=== PATIENT | female | born 1970 | race American Indian/Alaskan Native ===

== ENCOUNTER 2019-03-12 16:57 | Emergency (ER) | payer OTHER ==
[2019-03-12] MEDS ORDERED: HYDROcodone/ACETAMINOPHEN 5-325 MG TAB PO ONE (20:46)
[2019-03-12] MEDS ORDERED: IBUPROFEN 800 MG TAB PO ONE (20:46)
[2019-03-12] MEDS ORDERED: dexAMETHasone 20 MG/5 ML VIAL IM ONE (20:46)
--- NOTE | 2019-03-12 20:48 | Emergency Department Report ---
ED Neck Pain/Injury HPI - General Chief Complaint: Neck Pain/Injury Stated Complaint: PAIN ON (L) SIDE NECK TO ARM Time Seen by Provider: 03/12/19 19:51 Mode of arrival: Ambulatory Limitations: No Limitations - History of Present Illness Initial Comments: His rest the 49-year-old -Italian female who presents for chronic left neck pain radiating to left arm, patient completed cardiac workup last week with PCP cardiac status is normal EF is greater than 60%: this neck pain again is chronic for 5+ years, patient has degenerative disc disease Cspine, with radiculopathy. Patient is not currently followed by orthopedics, requesting referral to ortho, currently there is no cp, no diaphoresis ,no shortness of breath, no nausea /vomiting, no back pain. Left neck pain as 5/10 radiating to her left arm ,aching ,tingling. pain is exacerbated by movement, pain is relieved by rest. patient denies fall, injury ,or trauma , range of motion remains intact and unrestricted. MD Complaint: neck pain -: year(s) Place: home Radiation: left lateral Severity: moderate Severity scale (0 -10): 4 Quality: aching Consistency: constant Improves With: none Worsens With: none Context: other (chronic neck pain ) Associated Symptoms: tingling. denies: headache, weakness, vertigo, nausea, vomiting Treatments Prior to Arrival: none - Related Data Previous Rx's Medication Instructions Recorded Last Taken Type Diclofenac Dr (Nf) 50 mg PO TID PRN #30 tab 03/12/19 Unknown Rx Menthol/Camphor [[place] 1 applicatio TP QID PRN #1 tube 03/12/19 Unknown Rx Ointment] methOCARBAMOL [Robaxin TAB] 500 mg PO TID PRN #30 tab 03/12/19 Unknown Rx predniSONE [Deltasone] 40 mg PO QDAY 5 Days #10 tab 03/12/19 Unknown Rx Allergies Allergy/AdvReac Type Severity Reaction Status Date / Time No Known Allergies Allergy Unverified 03/12/19 17:09 ED Review of Systems ROS: Stated complaint: PAIN ON (L) SIDE NECK TO ARM Other details as noted in HPI Constitutional: denies: chills, fever Eyes: denies: eye pain, eye discharge, vision change ENT: denies: ear pain, throat pain Respiratory: denies: cough, shortness of breath, wheezing Cardiovascular: denies: chest pain, palpitations Endocrine: no symptoms reported Gastrointestinal: denies: abdominal pain, nausea, diarrhea Genitourinary: denies: urgency, dysuria, discharge Musculoskeletal: arthralgia, myalgia. denies: back pain, joint swelling Skin: denies: rash, lesions Neurological: denies: headache, weakness, numbness, paresthesias, confusion, vertigo Psychiatric: denies: anxiety, depression Hematological/Lymphatic: denies: easy bleeding, easy bruising ED Past Medical Hx - Past Medical History Previous Medical History?: Yes Hx Diabetes: Yes - Social History Smoking Status: Never Smoker Substance Use Type: None - Medications Home Medications: Home Medications Medication Instructions Recorded Confirmed Last Taken Type Diclofenac Dr (Nf) 50 mg PO TID PRN #30 tab 03/12/19 Unknown Rx Menthol/Camphor [[place] 1 applicatio TP QID PRN #1 tube 03/12/19 Unknown Rx Ointment] methOCARBAMOL [Robaxin TAB] 500 mg PO TID PRN #30 tab 03/12/19 Unknown Rx predniSONE [Deltasone] 40 mg PO QDAY 5 Days #10 tab 03/12/19 Unknown Rx ED Physical Exam - General Limitations: No Limitations General appearance: alert, in no apparent distress - Head Head exam: Present: atraumatic, normocephalic - Eye Eye exam: Present: normal appearance, PERRL, EOMI Pupils: Present: normal accommodation - ENT ENT exam: Present: mucous membranes moist - Neck Neck exam: Present: normal inspection, tenderness (right posterior lateral neck muscle pain ), full ROM. Absent: lymphadenopathy, thyromegaly - Expanded Neck Exam Expanded Neck exam: Present: tenderness (no posterior vertebral point tenderness rom intact to all pierce. without restricted ). Absent: midline deformity, anterior neck swelling, thyroid mass, carotid bruit, tracheal deviation - Respiratory Respiratory exam: Present: normal lung sounds bilaterally. Absent: respiratory distress, wheezes, stridor - Cardiovascular Cardiovascular Exam: Present: regular rate, normal rhythm, normal heart sounds. Absent: systolic murmur, diastolic murmur, rubs, gallop - GI/Abdominal GI/Abdominal exam: Present: soft, normal bowel sounds. Absent: distended, tenderness, bruit, hernia - Rectal Rectal exam: Present: deferred - Extremities Exam Extremities exam: Present: normal inspection, full ROM, normal capillary refill. Absent: tenderness, joint swelling - Expanded Upper Extremity Exam Left Shoulder Exam: Present: normal inspection, full ROM. Absent: tenderness Upper Arm exam: Present: normal inspection, full ROM. Absent: tenderness Elbow exam: Present: normal inspection, full ROM. Absent: tenderness Forearm Wrist exam: Present: normal inspection, full ROM. Absent: tenderness Hand Wrist exam: Present: normal inspection, full ROM. Absent: tenderness Neuro motor exam: Present: wrist extension intact, thumb opposition intact, thumb IP flexion intact, thumb adduction intact, fingers 2-5 abduction intact Neurosensory exam: Present: 2-point discrimination, radial nerve intact Vascular: Present: normal capillary refill - Back Exam Back exam: Present: normal inspection, full ROM. Absent: tenderness, CVA tenderness (R), CVA tenderness (L), muscle spasm, paraspinal tenderness, vertebral tenderness, rash noted - Neurological Exam Neurological exam: Present: alert, oriented X3, CN II-XII intact, normal gait, reflexes normal. Absent: motor sensory deficit - Expanded Neurological Exam Expanded Patient oriented to: Present: person, place, time Speech: Present: fluid speech Cranial nerves: EOM's Intact: Normal, Gag Reflex: Normal, Tongue Deviation: Normal, Nystagmus: Normal, Facial Sensation: Normal Motor strength exam: RUE: 5, LUE: 5 Best Eye Response ([place]): (4) open spontaneously Best Motor Response ([place]): (6) obeys commands Best Verbal Response ([place]): (5) oriented [place] Total: 15 - Psychiatric Psychiatric exam: Present: normal affect, normal mood - Skin Skin exam: Present: warm, dry, intact, normal color. Absent: rash ED Course Vital Signs 03/12/19 17:36 Temperature 98.2 F Pulse Rate 79 Respiratory 18 Rate Blood Pressure 120/88 O2 Sat by Pulse 98 Oximetry ED Medical Decision Making - Radiology Data Radiology results: report reviewed, image reviewed Ordering Physician: JOY ESCAMILLA NP Date of Service: 03/12/19 Procedure(s): XR spine cervical 2-3V Accession Number(s): [id number] cc: JOY ESCAMILLA NP Fluoro Time In Minutes: CERVICAL SPINE 3 VIEWS 2105 INDICATION: MAIN: neck pain X 3 DAYS; NO RECENT OR PREVIOUS INJURY; PAIN RADIATING DOWN RIGHT ARM COMPARISON: None available. FINDINGS: Lateral views mildly underpenetrated. No soft tissue swelling is seen. Moderate diffuse degenerative changes are seen. Disc space narrowing is noted at multiple levels below C3 but particularly C6-7. Anterior osteophytes are moderately prominent at the lower 2 levels with small osteophyte heights posteriorly at the lower 3 levels. No fractures or subluxations are seen. Slight scoliosis is noted. Signer Name: Aayush Blunt MD Signed: 03/12/2019 9:19 PM Workstation Name: [id number] Transcribed By: Dictated By: Aayush Blunt MD Electronically Authenticated By: Aayush Blunt MD Signed Date/Time: 03/12/192118 DD/ 17 TD/TT: - Medical Decision Making this is chronic radicular pain , plan: diclofenac ,methorcarbamol, prednisone, follow up with orthopedics in 2-3 days, pt verbalized agreement and understandong of discharge plan. Critical care attestation.: If time is entered above; I have spent that time in minutes in the direct care of this critically ill patient, excluding procedure time. ED Disposition Clinical Impression: Cervical radicular pain, Chronic neck pain Disposition: - TO HOME OR SELFCARE Is pt being admited?: No Does the pt Need Aspirin: No Condition: Stable Instructions: Cervical Spine Strain (ED), Cervical Radiculopathy (ED) Prescriptions: predniSONE [Deltasone] 40 mg PO QDAY 5 Days #[address] (Nf) 50 mg PO TID PRN #30 tab PRN Reason: pain methOCARBAMOL [Robaxin TAB] 500 mg PO TID PRN #30 tab PRN Reason: muscle spasm Menthol/Camphor [[place] Ointment] 1 applicatio TP QID PRN #1 tube PRN Reason: Pain , Severe (7-10) Referrals: AMOS HARRIS MD [Staff Physician] - 3-5 Days Forms: Work/School Release Form(ED) Time of Disposition: 21:59
--- NOTE | 2019-03-12 21:24 | XRay Report ---
CERVICAL SPINE 3 VIEWS 2105 INDICATION: MAIN: neck pain X 3 DAYS; NO RECENT OR PREVIOUS INJURY; PAIN RADIATING DOWN RIGHT ARM COMPARISON: None available. FINDINGS: Lateral views mildly underpenetrated. No soft tissue swelling is seen. Moderate diffuse deg enerative changes are seen. Disc space narrowing is noted at multiple levels below C3 but particularl y C6-7. Anterior osteophytes are moderately prominent at the lower 2 levels with small osteophyte hei ghts posteriorly at the lower 3 levels. No fractures or subluxations are seen. Slight scoliosis is no nataly. Signer Name: Aayush Blunt MD Signed: 03/12/2019 9:19 PM Workstation Name: [id number]
[2019-03-12 21:56] VITALS: BP 119/78
== END 2019-03-12 22:10 | disposition home or self-care (01) ==
LOC: ED 16:57
DX: M54.12 Radiculopathy, cervical region (principal); E11.9 Type 2 diabetes mellitus without complications; Z79.899 Other long term (current) drug therapy
CPT/HCPCS: 72040; 96372; 99283; J1100

== ENCOUNTER 2020-03-10 14:39 | Emergency (ER) | payer OTHER ==
[2020-03-10] MEDS ORDERED: dexAMETHasone 20 MG/5 ML VIAL IM ONE (16:43)
[2020-03-10] MEDS ORDERED: FAMOTIDINE 20 MG TAB PO ONE (16:43)
[2020-03-10 16:55] VITALS: BP 117/70
--- NOTE | 2020-03-10 16:56 | Emergency Department Report ---
ED Allergic Reaction HPI - General Chief complaint: Allergic Reaction Stated complaint: ALLERGIC REACTION Source: patient Mode of arrival: Ambulatory Limitations: No Limitations - History of Present Illness Initial Comments: Patient is a 50-year-old female presents emergency room with complaints of a possible allergic reaction that began yesterday. She states that she has a di ffuse rash which is very pruritic. She states that she has been taking Benadryl since yesterday but is continues to have itching. She states that she last took it around 9 AM this morning. She denies any new soaps, lotions, detergents, medications, foods, anything new she can think of. She denies any facial swelling, difficulty swallowing, tongue swelling, sensation of throat closing, shortness of breath. She states that this has happened in the past and states that it last occurred a year ago. She states that she had allergy test 2 years ago and reports it was normal. No past medical history. No allergies medications. - Related Data Previous Rx's Medication Instructions Recorded Last Taken Type Diclofenac Dr (Nf) 50 mg PO TID PRN #30 tab 03/12/19 Unknown Rx Menthol/Camphor [[place] 1 applicatio TP QID PRN #1 tube 03/12/19 Unknown Rx Ointment] methOCARBAMOL [Robaxin TAB] 500 mg PO TID PRN #30 tab 03/12/19 Unknown Rx predniSONE [Deltasone] 40 mg PO QDAY 5 Days #10 tab 03/12/19 Unknown Rx Famotidine [Pepcid] 40 mg PO QHS #10 tablet 03/10/20 Unknown Rx Prednisone [predniSONE 10 mg 10 mg PO .TAPER #1 tab.ds.pk 03/10/20 Unknown Rx (6-Day Pack, 21 Tabs)] hydrOXYzine HCL [Atarax] 25 mg PO Q6HR PRN #12 tablet 03/10/20 Unknown Rx Allergies Allergy/AdvReac Type Severity Reaction Status Date / Time No Known Allergies Allergy Unverified 03/12/19 17:09 ED Review of Systems ROS: Stated complaint: ALLERGIC REACTION Other details as noted in HPI Comment: All other systems reviewed and negative ED Past Medical Hx - Past Medical History Previous Medical History?: Yes Hx Hypertension: Yes Hx Diabetes: Yes Hx Arthritis: Yes - Surgical History Past Surgical History?: No - Social History Smoking Status: Never Smoker Substance Use Type: None - Medications Home Medications: Home Medications Medication Instructions Recorded Confirmed Last Taken Type Diclofenac Dr (Nf) 50 mg PO TID PRN #30 tab 03/12/19 Unknown Rx Menthol/Camphor [[place] 1 applicatio TP QID PRN #1 tube 03/12/19 Unknown Rx Ointment] methOCARBAMOL [Robaxin TAB] 500 mg PO TID PRN #30 tab 03/12/19 Unknown Rx predniSONE [Deltasone] 40 mg PO QDAY 5 Days #10 tab 03/12/19 Unknown Rx Famotidine [Pepcid] 40 mg PO QHS #10 tablet 03/10/20 Unknown Rx Prednisone [predniSONE 10 mg 10 mg PO .TAPER #1 tab.ds.pk 03/10/20 Unknown Rx (6-Day Pack, 21 Tabs)] hydrOXYzine HCL [Atarax] 25 mg PO Q6HR PRN #12 tablet 03/10/20 Unknown Rx ED Physical Exam - General Limitations: No Limitations General appearance: alert, in no apparent distress - Head Head exam: Present: atraumatic, normocephalic - Eye Eye exam: Present: normal appearance - ENT ENT exam: Present: mucous membranes moist, other (no angioedema) - Respiratory Respiratory exam: Present: normal lung sounds bilaterally. Absent: respiratory distress, wheezes, rales, rhonchi, stridor, chest wall tenderness, accessory muscle use, decreased breath sounds, prolonged expiratory - Cardiovascular Cardiovascular Exam: Present: regular rate, normal rhythm, normal heart sounds. Absent: systolic murmur, diastolic murmur, rubs, gallop - Neurological Exam Neurological exam: Present: alert, oriented X3 - Psychiatric Psychiatric exam: Present: normal affect, normal mood - Skin Skin exam: Present: warm, dry, urticaria (diffuse urticaria) ED Course Vital Signs 03/10/20 03/10/20 15:05 20:00 Temperature 99.4 F Pulse Rate 105 H 84 Respiratory 18 17 Rate Blood Pressure 117/70 O2 Sat by Pulse 95 97 Oximetry ED Medical Decision Making - Lab Data Vital Signs 03/10/20 03/10/20 15:05 20:00 Temperature 99.4 F Pulse Rate 105 H 84 Respiratory 18 17 Rate Blood Pressure 117/70 O2 Sat by Pulse 95 97 Oximetry - Medical Decision Making Patient is a 50-year-old female presents emergency room with complaints of a possible allergic reaction that began yesterday. She states that she has a diffuse rash which is very pruritic. She states that she has been taking Amauri adryl since yesterday but is continues to have itching. She states that she last took it around 9 AM this morning. She denies any new soaps, lotions, detergents, medications, foods, anything new she can think of. She denies any facial swelling, difficulty swallowing, tongue swelling, sensation of throat closing, shortness of breath. She states that this has happened in the past and states that it last occurred a year ago. She states that she had allergy test 2 years ago and reports it was normal. No past medical history. No allergies medications. vss. on exam: diffuse urticaria, no signs of angioedema or anaphylaxis. Patient given hydroxyzine, dexamethasone IM, Pepcid while in the emergency department and she was feeling much better and ready to go home and urticaria was improving. She had no further complications and was observed in the emergency department. Patient given prescription for prednisone, hydroxyzine, Pepcid. Advised patient Please take medication as prescribed. Please avoid scratching. Follow-up with your primary care doctor for reexamination. Return to emergency room immediately for any new or worsening symptoms. Critical care attestation.: If time is entered above; I have spent that time in minutes in the direct care of this critically ill patient, excluding procedure time. ED Disposition Clinical Impression: Urticaria Disposition: DC-01 TO HOME OR SELFCARE Is pt being admited?: No Does the pt Need Aspirin: No Condition: Stable Instructions: Hives Additional Instructions: Please take medication as prescribed. Please avoid scratching. Follow-up with your primary care doctor for reexamination. Return to emergency room immediately for any new or worsening symptoms. Prescriptions: Famotidine [Pepcid] 40 mg PO QHS #10 tablet hydrOXYzine HCL [Atarax] 25 mg PO Q6HR PRN #12 tablet PRN Reason: Itching Prednisone [predniSONE 10 mg (6-Day Pack, 21 Tabs)] 10 mg PO .TAPER #1 tab.ds.pk Referrals: PRIMARY CARE, [Primary Care Provider] - 2-3 Days Time of Disposition: 18:33 Print Language: [place]ESE
[2020-03-10] MEDS ORDERED: hydrOXYzine HCL 25 MG TAB PO SCH (17:00)
--- NOTE | 2020-03-10 17:02 | Emergency Department Report ---
HPI - General Chief Complaint: Allergic Reaction ED Past Medical Hx - Past Medical History Previous Medical History?: Yes Hx Hypertension: Yes Hx Diabetes: Yes Hx Arthritis: Yes - Surgical History Past Surgical History?: No - Social History Smoking Status: Never Smoker Substance Use Type: None - Medications Home Medications: Home Medications Medication Instructions Recorded Confirmed Last Taken Type Diclofenac Dr (Nf) 50 mg PO TID PRN #30 tab 03/12/19 Unknown Rx Menthol/Camphor [[place] 1 applicatio TP QID PRN #1 tube 03/12/19 Unknown Rx Ointment] methOCARBAMOL [Robaxin TAB] 500 mg PO TID PRN #30 tab 03/12/19 Unknown Rx predniSONE [Deltasone] 40 mg PO QDAY 5 Days #10 tab 03/12/19 Unknown Rx ED Review of Systems ROS: Stated complaint: ALLERGIC REACTION Other details as noted in HPI Critical care attestation.: If time is entered above; I have spent that time in minutes in the direct care of this critically ill patient, excluding procedure time. ED Disposition Condition: Stable
== END 2020-03-10 20:00 | disposition home or self-care (01) ==
LOC: ED 14:39
DX: L50.9 Urticaria, unspecified (principal); I10 Essential (primary) hypertension; E11.9 Type 2 diabetes mellitus without complications; M19.90 Unspecified osteoarthritis, unspecified site; Z79.899 Other long term (current) drug therapy
CPT/HCPCS: 96372; 99282; J1100

== ENCOUNTER 2020-04-01 00:48 | Emergency (ER) | payer OTHER ==
[2020-04-01 01:13] VITALS: BP 134/72
[2020-04-01] MEDS ORDERED: FAMOTIDINE 20 MG TAB PO ONE (03:53)
[2020-04-01] MEDS ORDERED: hydrOXYzine HCL 25 MG TAB PO ONE (03:53)
--- NOTE | 2020-04-01 03:53 | Emergency Department Report ---
ED General Adult HPI - General Chief complaint: Allergic Reaction Stated complaint: ALLERGIC REACTION PUI?: No Time Seen by Provider: 04/01/20 03:23 Source: patient, family Mode of arrival: Ambulatory Limitations: No Limitations - History of Present Illness Initial comments: The patient was evaluated in the emergency department for symptoms described in the history of present illness. He/she was evaluated in the context of the global COVID-19 pandemic, which necessitated consideration that the patient might be at risk for infection with the virus that causes COVID-19. Institutional protocols and algorithms that pertain to the evaluation of patients at risk for COVID-19 are in a state of rapid change based on informatio n released by regulatory bodies including the CDC and federal and state organizations. These policies and algorithms were followed during the patient's care in the emergency department. Please note that these policies, procedures and recommendations changed on a rapid basis. This is a 50-year-old female. She is not known to myself previously. She is going to see a conservation biology professor next week. She has a history of hypertension, diabetes, arthritis and obesity. The patient presents to the ER today with complaint of diffuse body itching, which has been present for about a month, she was seen in this department last month for similar symptoms, medicated with Atarax, prednisone, and famotidine, reports partial improvement in symptoms, however, over the past 2 to 3 days, reports that diffuse body pruritus has worsened. Denies fever, loss of taste, loss of smell, vaginal foreign body, indwelling tampon/feminine napkin, abdominal pain, chest pain, and shortness of breath. This is similar to her prior episode. She does not have any relieving factors that she is aware of. Patient does endorse nonspecific raised skin lesions underneath her bilateral breasts, arms, legs, and axilla. -: Gradual, week(s) Location: back, abdomen, left, right, upper extremity, lower extremity Quality: burning (Burning and itching), constant Consistency: constant Improves with: none Worsens with: none Associated Symptoms: denies other symptoms - Related Data Previous Rx's Medication Instructions Recorded Last Taken Type Diclofenac Dr (Nf) 50 mg PO TID PRN #30 tab 03/12/19 Unknown Rx Menthol/Camphor [Nathalie Margaret 1 applicatio TP QID PRN #1 tube 03/12/19 Unknown Rx Ointment] methOCARBAMOL [Robaxin TAB] 500 mg PO TID PRN #30 tab 03/12/19 Unknown Rx predniSONE [Deltasone] 40 mg PO QDAY 5 Days #10 tab 03/12/19 Unknown Rx Famotidine [Pepcid] 40 mg PO QHS #10 tablet 04/01/20 Unknown Rx Prednisone [predniSONE 10 mg 10 mg PO .TAPER #1 tab.ds.pk 04/01/20 Unknown Rx (6-Day Pack, 21 Tabs)] hydrOXYzine HCL [Atarax] 25 mg PO Q6HR PRN #12 tablet 04/01/20 Unknown Rx Allergies Allergy/AdvReac Type Severity Reaction Status Date / Time No Known Allergies Allergy Unverified 03/12/19 17:09 ED Review of Systems ROS: Stated complaint: ALLERGIC REACTION Other details as noted in HPI Constitutional: denies: fever Eyes: denies: eye discharge, vision change ENT: denies: ear pain, throat pain, epistaxis, congestion Respiratory: denies: cough Cardiovascular: denies: chest pain Gastrointestinal: denies: abdominal pain, nausea, vomiting, hematemesis, melena, hematochezia Genitourinary: denies: dysuria Musculoskeletal: denies: myalgia Skin: pruritus ED Past Medical Hx - Past Medical History Previous Medical History?: Yes Hx Hypertension: Yes Hx Diabetes: Yes Hx Arthritis: Yes - Surgical History Past Surgical History?: No - Social History Smoking Status: Never Smoker - Medications Home Medications: Home Medications Medication Instructions Recorded Confirmed Last Taken Type Diclofenac Dr (Nf) 50 mg PO TID PRN #30 tab 03/12/19 Unknown Rx Menthol/Camphor [Nathalie Margaret 1 applicatio TP QID PRN #1 tube 03/12/19 Unknown Rx Ointment] methOCARBAMOL [Robaxin TAB] 500 mg PO TID PRN #30 tab 03/12/19 Unknown Rx predniSONE [Deltasone] 40 mg PO QDAY 5 Days #10 tab 03/12/19 Unknown Rx Famotidine [Pepcid] 40 mg PO QHS #10 tablet 04/01/20 Unknown Rx Prednisone [predniSONE 10 mg 10 mg PO .TAPER #1 tab.ds.pk 04/01/20 Unknown Rx (6-Day Pack, 21 Tabs)] hydrOXYzine HCL [Atarax] 25 mg PO Q6HR PRN #12 tablet 04/01/20 Unknown Rx ED Physical Exam - General Limitations: No Limitations General appearance: alert, anxious, obese - Head Head exam: Present: atraumatic, normocephalic - Eye Eye exam: Present: normal appearance, EOMI. Absent: nystagmus - ENT ENT exam: Present: normal exam, normal orophraynx, mucous membranes moist, normal external ear exam - Neck Neck exam: Present: normal inspection, full ROM. Absent: tenderness, meningismus - Respiratory Respiratory exam: Present: normal lung sounds bilaterally. Absent: respiratory distress, wheezes, rales, rhonchi, stridor, chest wall tenderness - Cardiovascular Cardiovascular Exam: Present: regular rate, normal rhythm, normal heart sounds. Absent: bradycardia, tachycardia, irregular rhythm, systolic murmur, diastolic murmur, rubs, gallop - GI/Abdominal GI/Abdominal exam: Present: soft, normal bowel sounds. Absent: distended, tenderness, guarding, rebound, rigid, pulsatile mass - Extremities Exam Extremities exam: Present: normal inspection, full ROM, other (2+ pulses noted in the bilateral upper and lower extremities. There is no palpable cord. negative Homans sign. Muscular compartments are soft. The pelvis is stable.). Absent: calf tenderness - Back Exam Back exam: Present: normal inspection, full ROM. Absent: tenderness, CVA tenderness (R), CVA tenderness (L), paraspinal tenderness, vertebral tenderness - Neurological Exam Neurological exam: Present: alert, oriented X3, normal gait, other (No facial droop. Tongue midline. Extraocular movements intact bilaterally. Facial sensation intact to light touch in V1, V2, V3 distribution bilaterally. 5 and a 5 strength in 4 extremities. Sensation intact to light touch in 4 extremities.). Absent: motor sensory deficit - Psychiatric Psychiatric exam: Present: anxious - Skin Skin exam: Present: warm (Nontender tiny papules noted underneath the bilateral breast creases and arms.), dry, intact, normal color, other (There is no redness, pus, streaking. There is no blanching.). Absent: cyanosis, diaphoretic, urticaria, vesicles, petechiae, abrasion ED Course Vital Signs 04/01/20 01:10 Temperature 98.1 F Pulse Rate 103 H Respiratory 18 Rate Blood Pressure 134/72 O2 Sat by Pulse 97 Oximetry ED Medical Decision Making - Lab Data Result diagrams: 04/01/20 04:06 04/01/20 04:06 Vital Signs 04/01/20 01:10 Temperature 98.1 F Pulse Rate 103 H Respiratory 18 Rate Blood Pressure 134/72 O2 Sat by Pulse 97 Oximetry Lab Results 04/01/20 04/01/20 Range/Units 04:06 04:06 WBC 7.0 (4.5-11.0) K/mm3 RBC 4.55 (3.65-5.03) M/mm3 Hgb 12.0 (10.1-14.3) gm/dl Hct 36.8 (30.3-42.9) % MCV 81 (79-97) fl MCH 27 L (28-32) pg MCHC 33 (30-34) % RDW 17.1 H (13.2-15.2) % Plt Count 239 (140-440) K/mm3 Lymph % (Auto) 28.8 (13.4-35.0) % Rusk % (Auto) 4.7 (0.0-7.3) % Eos % (Auto) 1.3 (0.0-4.3) % Baso % (Auto) 0.4 (0.0-1.8) % Lymph # (Auto) 2.0 (1.2-5.4) K/mm3 Rusk # (Auto) 0.3 (0.0-0.8) K/mm3 Eos # (Auto) 0.1 (0.0-0.4) K/mm3 Baso # (Auto) 0.0 (0.0-0.1) K/mm3 Seg Neutrophils % 64.8 (40.0-70.0) % Seg Neutrophils # 4.5 (1.8-7.7) K/mm3 Sodium 135 L (137-145) mmol/L Potassium 3.9 (3.6-5.0) mmol/L Chloride 98.7 (98-107) mmol/L Carbon Dioxide 29 (22-30) mmol/L Anion Gap 11 mmol/L BUN 8 (7-17) mg/dL Creatinine 0.9 (0.6-1.2) mg/dL Estimated GFR > 60 ml/min BUN/Creatinine Ratio 9 % Glucose 138 H (65-100) mg/dL Calcium 8.9 (8.4-10.2) mg/dL Total Bilirubin 0.40 (0.1-1.2) mg/dL AST 11 (5-40) units/L ALT 15 (7-56) units/L Alkaline Phosphatase 56 (35-129) units/L Total Creatine Kinase 72 (30-135) units/L Total Protein 6.8 (6.3-8.2) g/dL Albumin 3.5 L (3.9-5) g/dL Albumin/Globulin Ratio 1.1 % - Medical Decision Making Differential diagnosis, including but not limited to: Primary pruritus, renal dysfunction, hepatic dysfunction, myelodysplastic disease Assessment and plan: 50-year-old female with diffuse presumably primary pruritus. Her tachycardia has resolved on my exam. She is afebrile with reassuring vital signs. Denies oral pain, vaginal pain and rectal pain, and vaginal/rectal foreign body. In addition, she is afebrile with reassuring vital signs. Laboratory studies not indicative of any emergent medical condition at this time. We treated her symptoms supportively and symptomatically. She has follow-up with a conservation biology professor in a few days. We will discharge with Atarax, famotidine, Medrol Dosepak, instructions to follow-up with outpatient dermatology. Patient has verbalized understanding. Return precautions are reviewed. Patient also denies new cream, cologne, shampoo, clothing etc. Critical care attestation.: If time is entered above; I have spent that time in minutes in the direct care of this critically ill patient, excluding procedure time. ED Disposition Clinical Impression: Generalized pruritus Disposition: DC-01 TO HOME OR SELFCARE Is pt being admited?: No Does the pt Need Aspirin: No Condition: Stable Instructions: Pruritus Additional Instructions: Please take the medications as prescribed and directed. Patient may also use calamine lotion [id number], and or oatmeal baths. Recommend follow-up with your conservation biology professor within the next week. Please return to the emergency room right away with new pain, worsening pain, migration of pain, projectile vomiting, change in mental status, confusion, inability to tolerate liquid feeds, new, worsening or different symptoms not present on the initial emergency room evaluation.
[2020-04-01 04:33] LABS: Basophils % (Auto) 0.4 % (0.0-1.8); Eosinophils # (Auto) 0.1 K/mm3 (0.0-0.4); Eosinophils % (Auto) 1.3 % (0.0-4.3); Hematocrit 36.8 % (30.3-42.9); Lymphocytes % (Auto) 28.8 % (13.4-35.0); Mean Corpuscular HGB Conc 33 % (30-34); Mean Corpuscular Volume 81 fl (79-97); Monocytes # (Auto) 0.3 K/mm3 (0.0-0.8); Monocytes % (Auto) 4.7 % (0.0-7.3); Platelet Count 239 K/mm3 (140-440); Red Blood Count 4.55 M/mm3 (3.65-5.03); Red Cell Distribution Width 17.1 % (13.2-15.2)
[2020-04-01 04:46] LABS: Alanine Aminotransferase 15 units/L (7-56); Albumin 3.5 g/dL (3.9-5); BUN/Creatinine Ratio 9; Blood Urea Nitrogen 8 mg/dL (7-17); Calcium 8.9 mg/dL (8.4-10.2); Hemolysis Index 3
[2020-04-01] MEDS ORDERED: predniSONE 20 MG TAB PO ONE (04:46)
== END 2020-04-01 05:20 | disposition home or self-care (01) ==
LOC: ED 00:48
DX: L29.8 Other pruritus (principal); I10 Essential (primary) hypertension; E11.9 Type 2 diabetes mellitus without complications; M19.90 Unspecified osteoarthritis, unspecified site; Z79.899 Other long term (current) drug therapy
CPT/HCPCS: 36415; 80053; 82550; 84443; 85025; 99283; J7512

== ENCOUNTER 2021-04-20 13:13 | Emergency (ER) | payer OTHER ==
--- NOTE | 2021-04-20 15:48 | Emergency Department Report ---
ED General Adult HPI - General Chief complaint: Allergic Reaction Stated complaint: ALLERGIC REACTION,FACE Time Seen by Provider: 04/20/21 15:40 Source: patient Mode of arrival: Ambulatory Limitations: No Limitations - History of Present Illness Initial comments: Patient presents with allergic reaction. She has had a history of allergies. She has an local government legislator that she sees. She has not had an outbreak in several months. She is not sure what triggered this episode. She woke up in her face was swollen. She had hives. Her lips were swollen. She is not having any trouble breathing or swallowing. She did state that she had some swelling in the left mandibular area and dental pain prior to this. The dental pain was in the left lower mandibular area. She states that she is is concerned that she may have developed an dental abscess. Regardless, she has had hives on the neck and shoulders and the swelling in the face. She came here for evaluation. - Related Data Previous Rx's Medication Instructions Recorded Last Taken Type Diclofenac Dr (Nf) 50 mg PO TID PRN #30 tab 03/12/19 Unknown Rx Menthol/Camphor [Bedford Pearson 1 applicatio TP QID PRN #1 tube 03/12/19 Unknown Rx Ointment] methOCARBAMOL [Robaxin TAB] 500 mg PO TID PRN #30 tab 03/12/19 Unknown Rx Famotidine [Pepcid] 40 mg PO QHS #10 tablet 04/01/20 Unknown Rx Prednisone [predniSONE 10 mg 10 mg PO .TAPER #1 tab.ds.pk 04/01/20 Unknown Rx (6-Day Pack, 21 Tabs)] hydrOXYzine HCL [Atarax] 25 mg PO Q6HR PRN #12 tablet 04/01/20 Unknown Rx Penicillin V Potassium 500 mg PO TID #30 04/20/21 Unknown Rx predniSONE [Deltasone] 40 mg PO QDAY 5 Days #10 tab 04/20/21 Unknown Rx Allergies Allergy/AdvReac Type Severity Reaction Status Date / Time ibuprofen [From Motrin] AdvReac Swelling Verified 04/20/21 13:45 ED Review of Systems ROS: Stated complaint: ALLERGIC REACTION,FACE Other details as noted in HPI Comment: All other systems reviewed and negative Constitutional: denies: fever Eyes: denies: eye pain ENT: denies: throat pain Respiratory: denies: cough Cardiovascular: denies: chest pain Endocrine: denies: unexplained weight loss Gastrointestinal: denies: abdominal pain Genitourinary: denies: dysuria Musculoskeletal: denies: back pain Skin: as per HPI Neurological: denies: headache Hematological/Lymphatic: denies: easy bruising ED Past Medical Hx - Past Medical History Hx Hypertension: Yes Hx Diabetes: Yes Hx Arthritis: Yes - Family History Family history: hypertension - Social History Smoking Status: Never Smoker - Medications Home Medications: Home Medications Medication Instructions Recorded Confirmed Last Taken Type Diclofenac Dr (Nf) 50 mg PO TID PRN #30 tab 03/12/19 Unknown Rx Menthol/Camphor [Bedford Pearson 1 applicatio TP QID PRN #1 tube 03/12/19 Unknown Rx Ointment] methOCARBAMOL [Robaxin TAB] 500 mg PO TID PRN #30 tab 03/12/19 Unknown Rx Famotidine [Pepcid] 40 mg PO QHS #10 tablet 04/01/20 Unknown Rx Prednisone [predniSONE 10 mg 10 mg PO .TAPER #1 tab.ds.pk 04/01/20 Unknown Rx (6-Day Pack, 21 Tabs)] hydrOXYzine HCL [Atarax] 25 mg PO Q6HR PRN #12 tablet 04/01/20 Unknown Rx Penicillin V Potassium 500 mg PO TID #30 04/20/21 Unknown Rx predniSONE [Deltasone] 40 mg PO QDAY 5 Days #10 tab 04/20/21 Unknown Rx ED Physical Exam - General Limitations: No Limitations, Other (Pulse ox noted and normal) General appearance: alert, in no apparent distress - Head Head exam: Present: atraumatic, other (There is facial swelling involving the lips bilaterally right and left. She has swelling of upper and lower lips. There is left mandibular swelling) - Eye Eye exam: Present: normal appearance, PERRL, EOMI - ENT ENT exam: Present: mucous membranes moist, normal external ear exam, other (Patient has dentalgia in the left lower wisdom tooth. is exquisitely tender to the patient. There is no discernible abscess) - Neck Neck exam: Present: other (Hives are noted). Absent: meningismus - Respiratory Respiratory exam: Present: normal lung sounds bilaterally, respiratory distress - Cardiovascular Cardiovascular Exam: Present: regular rate, normal rhythm - GI/Abdominal GI/Abdominal exam: Present: soft. Absent: tenderness - Extremities Exam Extremities exam: Present: normal capillary refill - Back Exam Back exam: Absent: CVA tenderness (R), CVA tenderness (L) - Neurological Exam Neurological exam: Present: alert, oriented X3, normal gait. Absent: motor sensory deficit - Psychiatric Psychiatric exam: Present: normal affect, normal mood - Skin Skin exam: Present: warm, dry ED Course - Reevaluation(s) Reevaluation #1: 04/20/21 17:28 Patient was treated and released ED Medical Decision Making - Medical Decision Making Patient presents with allergic reaction. She also has evidence of an odontogenic abscess. She started penicillin empirically. Patient was given prednisone for the HiSpeed she already has antihistamine and Pepcid to use [id number]. She was referred back to her dentist and her local government legislator. There is no evidence of airway compromise. Tongue is not involved. She is not drooling. Critical Care Time: No Critical care attestation.: If time is entered above; I have spent that time in minutes in the direct care of this critically ill patient, excluding procedure time. ED Disposition Clinical Impression: Hives, Apical alveolar abscess Angioedema Qualifiers: Encounter type: initial encounter Qualified Code(s): T78.3XXA - Angioneurotic edema, initial encounter Disposition: HOME / SELF CARE / HOMELESS Is pt being admited?: No Condition: Stable Instructions: Angioedema, [id number], Hives, Dental Abscess Additional Instructions: CONTINUE HOME MEDICATIONS. DRINK WATER. SEE YOUR DOCTOR AND DENTIST. RETURN FOR PROBLEMS. Prescriptions: predniSONE [Deltasone] 40 mg PO QDAY 5 Days #10 tab Penicillin V Potassium 500 mg PO TID #30 Referrals: PRIMARY CARE, [Referring] - 3-5 Days
== END 2021-04-20 15:59 | disposition home or self-care (01) ==
LOC: ED 13:13
DX: K04.6 Periapical abscess with sinus (principal); T78.3XXA Angioneurotic edema, initial encounter; I10 Essential (primary) hypertension; E11.9 Type 2 diabetes mellitus without complications; M19.90 Unspecified osteoarthritis, unspecified site; Z88.8 Allergy status to other drugs, medicaments and biological substances
CPT/HCPCS: 99282